=== PATIENT | male | born 1935 | race Caucasian/White ===

== ENCOUNTER 2021-03-30 05:57 | Day surgery (SDC) | payer MEDICARE ==
[2021-03-29 11:03] VITALS: BMI 24.3
[2021-03-30] MEDS ORDERED: Dexamethasone 4 mg/ml Vial ONE ×2 (06:25→06:51)
[2021-03-30] MEDS ORDERED: EPINEPHrine 1 MG/ML AMP ONE (06:25)
[2021-03-30] MEDS ORDERED: Bupivacaine PF 0.5% 30 ML VIAL ONE ×2 (06:25→06:51)
[2021-03-30] MEDS ORDERED: Fentanyl 100 MCG/2 ML VIAL ONE (06:55)
[2021-03-30] MEDS ORDERED: Lidocaine 1% PF 5 ML VIAL ONE (07:30)
[2021-03-30] MEDS ORDERED: PROPOFOL 200 MG/20 ML VIAL ONE (07:30)
== END 2021-03-30 08:30 | disposition home or self-care (01) ==
LOC: SDC 05:57
PROVIDERS: ATTEND Thoracic Surgery (Cardiothoracic Vascular Surgery)
DX: C44.41 Basal cell carcinoma of skin of scalp and neck (principal); I65.23 Occlusion and stenosis of bilateral carotid arteries; I10 Essential (primary) hypertension; E78.2 Mixed hyperlipidemia; I25.10 Atherosclerotic heart disease of native coronary artery without angina pectoris; J43.9 Emphysema, unspecified; I71.4 Abdominal aortic aneurysm, without rupture; Z79.82 Long term (current) use of aspirin; Z79.899 Other long term (current) drug therapy; Z95.1 Presence of aortocoronary bypass graft
CPT/HCPCS: 88305; J0171; J0690; J1100; J2704; J3010; S0020

== ENCOUNTER 2021-06-25 09:55 | Inpatient (IN) | payer MEDICARE ==
[2021-06-25] MEDS ORDERED: Cefepime 2 GM VIAL ONE (10:20)
[2021-06-25] MEDS ORDERED: metroNIDAZOLE 500 MG/100 ML BAG ONE (10:21)
[2021-06-25] MEDS ORDERED: Vancomycin 1 GM/200 ML BAG ONE (10:22)
[2021-06-25 10:46] LABS: Hemoglobin 10.9 g/dL (14.0-18.0); RBC Distribution Width 13.2 % (11.5-14.5)
[2021-06-25 10:58] LABS: INR-International Normal Ratio 2.1; PTT 59.4 sec (22.9-36.1); Prothrombin Time 23.5 sec (12.0-14.7)
[2021-06-25 11:01] LABS: Bacteria/HPF None Seen HPF (None Seen); Bilirubin Negative (Negative); Blood, Urine 3+ (Negative); Clarity Clear (Clear); Glucose, Urine (Dipstick) Normal (Negative); Ketone, Urine Trace mg/dL (Negative); Leukocyte Negative Leu/uL (Negative); Nitrite Negative (Negative); Protein, Urine (Dipstick) 300 mg/dL (Neg-Trace); RBC/HPF 21-50 HPF (0-3); Squamous Epithelial 0-3 HPF (0-3); Urobilinogen Normal mg/dL (Less than 2)
[2021-06-25 11:01] LABS: Actual Bicarbonate (HCO3a) 8.5 mEq/L (22-28); Analyzer IN Cardio ER; Base Excess (BEa) -25.7 mEq/L (-2.0 to +3.0); Calcium, Ionized (arterial) 1.03 mmol/L (1.12-1.30); Carboxyhemoglobin (COHb) 0.3 gm% (0.0-3.0); Hemoglobin (Hb) 11.7 g/dL (14.0-18.0); O2 Tension (PaO2), arterial 81.1 mmHg (> 60.0); Potassium - ABG Lab 4.47 mmol/L (3.70-5.30)
[2021-06-25] MEDS ORDERED: Sodium Bicarb 50 MEQ/50 ML Abboject 8.4% SYRINGE ONE ×2 (11:02→11:24)
[2021-06-25 11:04] LABS: Specific Gravity, Urine 1.046 (1.002-1.036)
[2021-06-25 11:05] LABS: Puncture Site RRA; pH, Arterial 6.81 (7.35-7.45)
[2021-06-25 11:11] LABS: Band 36 % (5-11); Burr Cells SLIGHT = 2-5 cells (100X) (0-1/hpf); Lymphocytes 6 % (21-51); MDiff Complete? YES; Macrocytosis SLIGHT = 6-15 cells (100X) (0-5/hpf); Mean Platelet Volume 8.5 fL (7.4-10.4); Metamyelocyte 2 % (0-0); Monocytes 7 % (0-10); Neutrophil 49 % (42-75); Ovalocytes SLIGHT = 2-5 cells (100X) (0-1/hpf); Platelet Count 111 thou/uL (130-400); Platelet Morphology Comment Appears Decreased; Polychromasia SLIGHT = 2-3 cells (100X) (0-2/hpf)
[2021-06-25 11:21] LABS: ALT (SGPT) 942 U/L (8-55); AST (SGOT) 1117 U/L (5-34); Alkaline Phosphatase 90 U/L (40-110); Anion Gap 20 mmol/L (10-20); BUN (Urea Nitrogen) 15 mg/dL (8.4-25.7); Bilirubin, Total 0.7 mg/dL (0.2-1.2); CK (CPK) 51 U/L (30-200); Calc. Creatinine Clearance 0 mL/min (70-130); Calcium 6.5 mg/dL (7.8-10.44); Chloride 117 mmol/L (98-107); Globulin 1.8 g/dL (2.4-3.5); Glucose 65 mg/dL (83-110); Lipase 62 U/L (8-78); Magnesium 1.8 mg/dL (1.6-2.6); Potassium 4.3 mmol/L (3.5-5.1); Protein, Total 3.8 g/dL (5.8-8.1); Sodium 141 mmol/L (136-145)
[2021-06-25] MEDS ORDERED: Phenylephrine 10 MG/ML VIAL ONE (11:22)
[2021-06-25] MEDS ORDERED: Norepinephrine 4 MG/4 ML VIAL ONE (11:22)
[2021-06-25] MEDS ORDERED: Ketamine 50 MG/ML (10ML VIAL) ONE (11:22)
[2021-06-25] MEDS ORDERED: Fentanyl 100 MCG/2 ML VIAL ONE (11:22)
[2021-06-25] MEDS ORDERED: Sodium Bicarbonate 2.5 MEQ/5 ML VIAL ONE (11:23)
[2021-06-25] MEDS ORDERED: Albumin 5% 500 ML ONE (11:23)
[2021-06-25 11:29] LABS: Carbon Dioxide 8 mmol/L (23-31)
[2021-06-25 11:36] LABS: CKMB 5.4 ng/mL (0-6.6)
[2021-06-25] MEDS ORDERED: Calcium Chloride 1 GM/10 ML Abboject SYRINGE ONE (11:52)
[2021-06-25] MEDS ORDERED: Sodium Bicarb 5 MEQ/10 ML Abboject 4.2% SYRINGE ONE (11:52)
[2021-06-25] MEDS ORDERED: Norepinephrine 8 MG/0.9% NS 250 ML IVPB SCH (12:15)
[2021-06-25] MEDS ORDERED: Pharmacy to Dose VANCOMYCIN AND MEROPENEM IVPB PRN (12:15)
[2021-06-25] MEDS ORDERED: Ventilator Sedation Protocol 1 EACH FS ONE (12:16)
[2021-06-25] MEDS ORDERED: Sodium Bicarbonate 140 MEQ in Dextrose 5% in Water 1,000 ML IV SCH (12:30)
[2021-06-25] MEDS ORDERED: Lorazepam 2 MG/ML VIAL SLOW IVP PRN (12:45)
[2021-06-25] MEDS ORDERED: Vasopressin 20 UNIT, Admixture Fee 1 EACH in Sodium Chloride 0.9% 50 ML IV SCH (12:45)
[2021-06-25] MEDS ORDERED: Propofol BOLUS 1,000 MG/100 ML VIAL IV PRN (12:45)
[2021-06-25] MEDS ORDERED: Sodium Chloride 0.9% (PF) 10 ML VIAL FS PRN (12:45)
[2021-06-25] MEDS ORDERED: Fentanyl CADD 100 ML IV SCH (12:45)
[2021-06-25] MEDS ORDERED: Fentanyl BOLUS 250 ML IVPB PRN (12:45)
[2021-06-25] MEDS ORDERED: DISCONTINUE PREVIOUS NARCOTIC PAIN MEDICATIONS AND BENZODIAZEPINES FS SCH (12:45)
[2021-06-25] MEDS ORDERED: Morphine 2 MG/ML VIAL SLOW IVP PRN (12:45)
[2021-06-25] MEDS ORDERED: Propofol 1,000 MG/100 ML VIAL IV PRN (12:45)
[2021-06-25] MEDS ORDERED: MEROPENEM 1 GM/50 ML 1 GM in Premix Bag 1 BAG IVPB SCH ×2 (13:00→21:00)
[2021-06-25] MEDS ORDERED: Meropenem 2 GM in Sodium Chloride 0.9% 100 ML IVPB SCH (14:00)
[2021-06-26] MEDS ORDERED: VANCOMYCIN 1.25 GM/250 ML BAG 1.25 GM in Premix Bag 1 BAG IVPB SCH (09:00)
[2021-06-26] MEDS ORDERED: Pantoprazole 40 MG VIAL IVP SCH ×2 (09:00)
[2021-07-13 11:09] LABS: Actual Bicarbonate (HCO3a) 11.1 mEq/L (22-28); Analyzer IN Cardio OR; Base Excess (BEa) -20.6 mEq/L (-2.0 to +3.0); Hemoglobin (Hb) 11.3 g/dL (14.0-18.0); O2 Tension (PaO2), arterial 93.7 mmHg (> 60.0)
[2021-07-13 11:10] LABS: Puncture Site Arterial Line; pH, Arterial 6.95 (7.35-7.45)
== END 2021-06-25 21:00 | disposition expired | DRG 853 ==
LOC: ERS 09:55 → SURG A 14:00
PROVIDERS: ADMIT Specialist; ATTEND Specialist
PROC: 0WJG0ZZ Inspection of Peritoneal Cavity, Open Approach (ICD-10-PCS; principal; 2021-06-25)
PROC: 3E043XZ Introduction of Vasopressor into Central Vein, Percutaneous Approach (ICD-10-PCS; 2021-06-25)
PROC: 0BH17EZ Insertion of Endotracheal Airway into Trachea, Via Natural or Artificial Opening (ICD-10-PCS; 2021-06-25)
PROC: 5A1935Z Respiratory Ventilation, Less than 24 Consecutive Hours (ICD-10-PCS; 2021-06-25)
DX: A41.9 Sepsis, unspecified organism (principal); R65.21 Severe sepsis with septic shock; K55.029 Acute infarction of small intestine, extent unspecified; J18.9 Pneumonia, unspecified organism; E87.2 Acidosis; K55.9 Vascular disorder of intestine, unspecified; I11.0 Hypertensive heart disease with heart failure; Z20.822 Contact with and (suspected) exposure to COVID-19; E78.5 Hyperlipidemia, unspecified; I25.10 Atherosclerotic heart disease of native coronary artery without angina pectoris; J43.9 Emphysema, unspecified; I73.9 Peripheral vascular disease, unspecified; I50.9 Heart failure, unspecified; E78.00 Pure hypercholesterolemia, unspecified; Z95.1 Presence of aortocoronary bypass graft; I71.4 Abdominal aortic aneurysm, without rupture
CPT/HCPCS: 36415; 36416; 36600; 71045; 82550; 82553; 82805; 83605; 83690; 83735; 83880; 85610; 85730; 87086; 93005; 94002; 94760; 96365; 96367; 96368; 96375; J0692; J2185; J2370; J3010; J3370; J7070; P9045